=== PATIENT | male | born 1970 | race Caucasian/White ===

== ENCOUNTER 2020-04-04 09:01 | Outpatient (CLI) | payer OTHER, SELFPAY ==
--- NOTE | ~2020-04-04 | CT_ITS ---
EXAMINATION: CT abdomen pelvis wo con DATE: 04/04/2020 09:33 INDICATION: Right-sided abdominal pain. TECHNIQUE: Computed tomography (CT) of the abdomen and pelvis was performed without intravenous contr ast. Automated exposure control and iterative reconstruction technique were employed. The dose-length product was 437.96 mGy-cm. COMPARISON: None. FINDINGS: The visualized portions of the lung bases demonstrate minimal atelectasis. No pleural effus ion. The heart size is normal. No pericardial effusion. The liver, gallbladder, spleen, pancreas, adr enal glands, and kidneys are normal. There is no urolithiasis. There is an umbilical hernia containin g fat. The prostate is moderately enlarged. There is a left inguinal hernia containing fat. There is an anastomosis in the rectosigmoid. There are no dilated loops of bowel. The appendix is normal. Ther e are no pathologically enlarged lymph nodes. There is no free intraperitoneal fluid. There is modera te lumbar spondylosis. IMPRESSION: 1. No urolithiasis. 2. Umbilical hernia containing fat. Left inguinal hernia containing fat. Reviewed, dictated and finalized at location B.
== END 2020-04-04 09:02 | disposition home or self-care (01) ==
PROVIDERS: Visit Provider Urology
DX: K42.9 Umbilical hernia without obstruction or gangrene (principal)
CPT/HCPCS: 74176